=== PATIENT | male | born 1990 | race Caucasian/White ===

== ENCOUNTER 2022-10-12 18:39 | Emergency (ER) | payer MEDICAID ==
[~2022-10-12] VITALS: Ht 170.2 cm; Wt 75.8 kg
[2022-10-12 19:00] VITALS: BP 122/57
[2022-10-12] MEDS ORDERED: HYDROcodone/acetaminophen 5mg/325mg tablet PO ONE (19:25)
[2022-10-12] MEDS ORDERED: ketorolac trometh. 30mg/ml inj. IM ONE (19:25)
[2022-10-12] MEDS ORDERED: ondansetron 4mg rapidly disintigrating tab PO ONE (19:25)
== END 2022-10-12 20:54 | disposition home or self-care (01) ==
LOC: ER 18:40
DX: S90.32XA Contusion of left foot, initial encounter (principal); F12.10 Cannabis abuse, uncomplicated; F17.200 Nicotine dependence, unspecified, uncomplicated; X58.XXXA Exposure to other specified factors, initial encounter; Y93.89 Activity, other specified; Y92.89 Other specified places as the place of occurrence of the external cause
CPT/HCPCS: 73630; 96372; 99283; J1885; L4360

== ENCOUNTER 2022-11-10 18:25 | Emergency (ER) | payer MEDICAID ==
[~2022-11-10] VITALS: Ht 170.2 cm; Wt 86.4 kg
[2022-11-10 18:44] VITALS: BP 125/73
[2022-11-10] MEDS ORDERED: ONDA4TAB12 PO (18:59)
[2022-11-10] MEDS ORDERED: ALBU8HFA PO (18:59)
== END 2022-11-10 19:37 | disposition home or self-care (01) ==
LOC: ER 18:25
DX: J06.9 Acute upper respiratory infection, unspecified (principal); B97.89 Other viral agents as the cause of diseases classified elsewhere; Z20.822 Contact with and (suspected) exposure to COVID-19; F12.90 Cannabis use, unspecified, uncomplicated; Z72.89 Other problems related to lifestyle; Z79.899 Other long term (current) drug therapy
CPT/HCPCS: 87502; 87503; 87635; 99283; C9803